=== PATIENT | female | born 1945 | race Caucasian/White ===

== ENCOUNTER 2024-05-31 11:01 | Outpatient (CLI) | payer MEDICARE | END 2024-05-31 11:02 | disposition home or self-care (01) | LOC: CSHULT 11:01 | PROVIDERS: ATTEND Internal Medicine | DX: R01.1 Cardiac murmur, unspecified (principal); Z80.8 Family history of malignant neoplasm of other organs or systems; I08.0 Rheumatic disorders of both mitral and aortic valves; E04.2 Nontoxic multinodular goiter | CPT/HCPCS: 76536; 93306 ==